=== PATIENT | female | born 1960 | race Caucasian/White ===

== ENCOUNTER → 2017-01-05 | Outpatient (CLI) | payer OTHER ==
[2017-01-05 16:16] LABS: BLOOD UREA NITROGEN 18 mg/dL (7-18)
[2017-01-05 16:17] LABS: ASPARTATE AMINO TRANSFERASE 24 U/L (15-37)
== END | disposition home or self-care (01) ==
LOC: CFH 14:38
PROVIDERS: ATTEND Family Medicine
DX: Z12.11 Encounter for screening for malignant neoplasm of colon (principal); F32.1 Major depressive disorder, single episode, moderate; R03.0 Elevated blood-pressure reading, without diagnosis of hypertension; R10.11 Right upper quadrant pain; R20.2 Paresthesia of skin; N64.89 Other specified disorders of breast; N60.01 Solitary cyst of right breast
CPT/HCPCS: 36415; 76642; 80053; 80061; 82607; 82746; 83036; 83690; 84443; 85025; G0204

== ENCOUNTER 2020-03-16 16:36 | Emergency (ER) | payer OTHER ==
[~2020-03-16] VITALS: Ht 165.1 cm; Wt 92.3 kg
[2020-03-16] MEDS ORDERED: KETOROLAC 60 MG/2 ML ONE (17:05)
--- NOTE | 2020-03-16 17:20 | NUR ---
report from kaylie carrion pt here for L shoulder pain toradol per nov lab at bedside pt to xr. as
[2020-03-16 17:21] LABS: BASOPHILS # (AUTO) 0.06 x10^3/uL (0-0.1); BASOPHILS % (AUTO) 1 % (0-1); EOSINOPHILS # (AUTO) 0.11 x10^3/uL (0-0.4); EOSINOPHILS % (AUTO) 2 % (1-7); LYMPHOCYTES # (AUTO) 2.08 x10^3/uL (1-3.4); LYMPHOCYTES % (AUTO) 32 % (22-44); MD NO; MEAN CORPUSCULAR HEMOGLOBIN 31.6 pg (27.0-34.8); MEAN CORPUSCULAR VOLUME 92.8 fL (80-100); MEAN PLATELET VOLUME 8.1 fL (7.4-10.4); MONOCYTES # (AUTO) 0.39 x10^3/uL (0.2-0.8); MONOCYTES % (AUTO) 6 % (2-9); NEUTROPHILS # (AUTO) 3.78 x10^3/uL (1.8-6.8); NEUTROPHILS % (AUTO) 59 % (42-75); PLATELET COUNT 257 x10^3/uL (130-400); RED BLOOD COUNT 4.47 x10^6/uL (3.82-5.3); RED CELL DISTRIBUTION WIDTH 14.2 % (9.6-15.2)
[2020-03-16] MEDS ORDERED: KETOROLAC 30 MG/1 ML IM ONE (17:30)
[2020-03-16 17:37] LABS: ALANINE AMINOTRANSFERASE 54 U/L (12-78); ALBUMIN 3.8 g/dL (3.4-5.0); ANION GAP 8 mmol/L (5-15); CALCIUM 8.7 mg/dL (8.5-10.1); CHLORIDE 109 mmol/L (98-107); CREATININE 0.94 mg/dL (0.55-1.02)
[2020-03-16 17:41] LABS: ALKALINE PHOSPHATASE 85 U/L (45-117); TOTAL PROTEIN 7.2 g/dL (6.4-8.2); TROPONIN I < 0.015 ng/mL (0.000-0.045)
[2020-03-16 17:44] LABS: BILIRUBIN,TOTAL 0.2 mg/dL (0.2-1.0)
[2020-03-16 17:58] VITALS: BP 151/79
--- NOTE | 2020-03-16 18:10 | NUR ---
pain not relieved by toradol labs wnl xr at bedside. as
== END 2020-03-16 18:39 | disposition home or self-care (01) ==
LOC: ED 18:23
DX: M54.14 Radiculopathy, thoracic region (principal); R07.9 Chest pain, unspecified; M54.2 Cervicalgia; Z87.891 Personal history of nicotine dependence
CPT/HCPCS: 36415; 71045; 72125; 80053; 84484; 85025; 93005; 96372; 99285; J1885